=== PATIENT | male | born 1980 | race African-American/Black ===

== ENCOUNTER 2019-09-23 10:15 | Emergency (ER) | payer BC, OTHER ==
[~2019-09-23] VITALS: Ht 175.3 cm; Wt 88.5 kg
[2019-09-23] MEDS ORDERED: NAPROSYN500 MG PO (11:23)
[2019-09-23] MEDS ORDERED: NORFLEX100 MG PO (11:23)
[2019-09-23 12:48] VITALS: BP 124/89
== END 2019-09-23 12:50 | disposition home or self-care (01) ==
LOC: ER 10:15
DX: S16.1XXA Strain of muscle, fascia and tendon at neck level, initial encounter (principal); S29.012A Strain of muscle and tendon of back wall of thorax, initial encounter; S39.012A Strain of muscle, fascia and tendon of lower back, initial encounter; S70.02XA Contusion of left hip, initial encounter; V89.2XXA Person injured in unspecified motor-vehicle accident, traffic, initial encounter; Y93.89 Activity, other specified; Y92.89 Other specified places as the place of occurrence of the external cause; Y99.8 Other external cause status

== ENCOUNTER 2019-09-24 21:47 | Emergency (ER) | payer BC, OTHER ==
[~2019-09-24] VITALS: Ht 175.3 cm; Wt 86.2 kg
[~2019-09-24 21:47] MED LIST: NAPROSYN500 MG PO; NORFLEX100 MG PO
[2019-09-24 21:56] VITALS: BP 135/85
== END 2019-09-24 22:56 | disposition home or self-care (01) ==
LOC: ER 21:47
DX: S10.93XA Contusion of unspecified part of neck, initial encounter (principal); S40.012A Contusion of left shoulder, initial encounter; S70.02XA Contusion of left hip, initial encounter; V89.0XXA Person injured in unspecified motor-vehicle accident, nontraffic, initial encounter; Y93.89 Activity, other specified; Y92.89 Other specified places as the place of occurrence of the external cause; Y99.8 Other external cause status

== ENCOUNTER 2021-08-04 04:22 | Emergency (ER) | payer BC, OTHER ==
[~2021-08-04] VITALS: Ht 175.3 cm; Wt 93.0 kg
[2021-08-04] MEDS ORDERED: BACTRIM 400-801 EACH PO (06:12)
[2021-08-04 06:16] VITALS: BP 130/88
== END 2021-08-04 06:19 | disposition home or self-care (01) ==
LOC: ER 04:22
DX: L03.211 Cellulitis of face (principal); F12.90 Cannabis use, unspecified, uncomplicated